=== PATIENT | female | born 2000 | race American Indian/Alaskan Native ===

== ENCOUNTER 2021-03-30 18:54 | Inpatient (IN) | payer SELFPAY ==
[2021-03-30] MEDS ORDERED: LACTATED RINGERS 1,000 ML ONE (20:49)
[2021-03-30 21:18] LABS: Hemoglobin 10.3 gm/dl (10.1-14.3); Mean Corpuscular HGB Conc 32 % (30-34); Mean Corpuscular Volume 73 fl (79-97); Platelet Count 214 K/mm3 (140-440); Red Cell Distribution Width 16.3 % (13.2-15.2)
[2021-03-30 21:20] LABS: Bilirubin,Urine NEG (Negative); Blood,Urine NEG (Negative); Color,Urine Yellow (Yellow); Protein,Urine <15 mg/dL mg/dL (Negative); Urobilinogen,Urine < 2.0 mg/dL (<2.0); WBC,Urine < 1.0 /HPF (0.0-6.0)
[2021-03-30 22:22] LABS: Alanine Aminotransferase 6 units/L (7-56); Albumin 3.8 g/dL (3.9-5); Blood Urea Nitrogen 3 mg/dL (7-17); Calcium 9.5 mg/dL (8.4-10.2); Hemolysis Index 5
[2021-03-30 22:26] LABS: BUN/Creatinine Ratio 8
--- NOTE | 2021-03-30 22:36 | Ultrasound Report ---
ULTRASOUND OBSTETRIC LIMITED ULTRASOUND BIOPHYSICAL PROFILE INDICATION / CLINICAL INFORMATION: WELL BEING. Clinical Gestational Age (GA) in weeks, days: 40 weeks 3 days TECHNIQUE: Transabdominal. COMPARISON: None available. FINDINGS: BREATHING MOVEMENT = 2 GROSS BODY MOVEMENT = 2 TONE = 2 QUALITATIVE AMNIOTIC FLUID VOLUME = 2 TOTAL BIOPHYSICAL SCORE = 8/8 HEART RATE (beats per minute): 137 AMNIOTIC FLUID INDEX (cm) = 16 (normal = 7-24 cm) PRESENTATION: Cephalic. ADDITIONAL FINDINGS: None. IMPRESSION: 1. Biophysical Score = 8/8 Signer Name: Miki Pritchett MD Signed: 03/30/2021 10:31 PM Workstation Name: [id number]
--- NOTE | 2021-03-30 22:40 | Ultrasound Report ---
ULTRASOUND OBSTETRIC INDICATION / CLINICAL INFORMATION: GEST AGE. Clinical Gestational Age (GA) in weeks, days: 20 weeks 3 days TECHNIQUE: Transabdominal. COMPARISON: None available. FINDINGS: Single intrauterine . Biparietal Diameter = 9.5 cm = 39, 0 weeks, days Head Circumference = 33.9 cm = 38, 4 weeks, days Abdominal Circumference = 36.4 cm = 39, 5 weeks, days Femur Length = 7.5 cm = 38.1 weeks, days Average Ultrasound Age (AUA) = 38, 6 weeks, days Heart Rate: 137 beats per minute. Estimated Weight in grams (if calculated): 3702 grams Estimated Weight Growth Percentile (if calculated): 51 Position: cephalic. Placenta: anterior and free of the os. Amniotic Fluid Volume: normal Amniotic Fluid Index (JOSE) in cm (if calculated): 16. Maternal Adnexa: No significant abnormality. IMPRESSION: 1. Single, living intrauterine with estimated sonographic age of 38, 6 weeks, days. 2. No significant sonographic abnormality. Signer Name: Miki Pritchett MD Signed: 03/30/2021 10:35 PM Workstation Name: [id number]
[2021-03-30] MEDS ORDERED: ACETAMINOPHEN W/CODEINE 300-30 MG TAB PO ONE (23:47)
[2021-03-31] MEDS ORDERED: LACTATED RINGERS 1,000 ML ONE (00:13)
[2021-03-31] MEDS ORDERED: LIDOCAINE (2%) 20 MG/1 ML VIAL 20 ML MDV INFILTRATI ONE (00:19)
[2021-03-31] MEDS ORDERED: ePHEDrine SULFATE 50 MG/1 ML INJ IV PRN ×2 (00:19→01:51)
[2021-03-31] MEDS ORDERED: NalbUPHINE 10 MG/1 ML INJ IV PRN ×2 (00:19→01:51)
[2021-03-31] MEDS ORDERED: AMPICILLIN/NS 2 GM/100 ML 2 GM/100 ML BAG IV ONE (00:19)
[2021-03-31] MEDS ORDERED: TERBUTALINE 1 MG/1 ML INJ SUB-Q PRN (00:19)
[2021-03-31] MEDS ORDERED: ACETAMINOPHEN 325 MG TAB PO PRN (00:19)
[2021-03-31] MEDS ORDERED: PROMETHAZINE 25 MG TAB PO PRN ×2 (00:19→13:00)
[2021-03-31] MEDS ORDERED: LOPERAMIDE 2 MG CAP PO PRN (00:19)
[2021-03-31] MEDS ORDERED: MINERAL OIL 30 ML ORAL LIQD PO PRN (00:19)
[2021-03-31] MEDS ORDERED: OXYTOCIN 10 UNIT/1 ML INJ IM PRN (00:19)
[2021-03-31] MEDS ORDERED: METHYLERGONOVINE MALEATE 0.2 MG/ML VIAL IM PRN (00:19)
[2021-03-31] MEDS ORDERED: miSOPROStol 200 MCG TAB PR PRN (00:19)
[2021-03-31] MEDS ORDERED: CARBOPROST TROMETHAMINE 250 MCG/1 ML INJ IM PRN (00:19)
[2021-03-31] MEDS ORDERED: ONDANSETRON 4 MG/2 ML INJ IV PRN ×3 (00:19→13:00)
[2021-03-31] MEDS ORDERED: fentaNYL 100 MCG/2 ML INJ IV PRN (00:19)
--- NOTE | 2021-03-31 00:28 | History and Physical Report ---
History of Present Illness Date of examination: 03/31/21 Date of admission: 03/31/21 Chief complaint: painful contractions History of present illness: at term by [place] Pt had ultrasound done tonight by [facility] and same was at 38.3wks. Pt c/o painful contractions that are worsening, denies leakage of fluid or vag bleeding. pt desires epidural for pain relief. Pt admits to movement. Past History Past Medical History: no pertinent history Past Surgical History: no surgical history Social history: no significant social history - Obstetrical History : 1 Number of Living Children: 0 Medications and Allergies Allergies Allergy/AdvReac Type Severity Reaction Status Date / Time No Known Allergies Allergy Unverified 03/30/21 19:39 Home Medications Medication Instructions Recorded Confirmed Last Taken Type No Known Home Medications [No 03/30/21 03/30/21 Unknown History Reported Home Medications] Review of Systems All systems: negative (painful ctx) - Vital Signs Vital signs: Vital Signs Pulse BP Pulse Ox 90 122/73 76 L 03/30/21 19:36 03/30/21 19:36 03/30/21 19:36 Temp Pulse Resp BP Pulse Ox 98.4 F 95 H 12 122/73 94 03/30/21 21:34 03/31/21 00:20 03/30/21 19:39 03/30/21 19:39 03/31/21 00:20 - Physical Exam Breasts: Positive: deferred Cardiovascular: Regular rate Lungs: Positive: Normal air movement Uterus: Positive: enlarged (firm abdomen with contractions without resting tone) Extremities: Positive: normal - Obstetrical FHR: category 1 Uterine Contraction Monitor Mode: Palpation Cervical Dilatation: 2 (per triage nurse) Cervical Effacement Percentage: 80 station: -3 Uterine Contraction Pattern: Regular Uterine Contraction Intensity: Strong/Firm Results Result Diagrams: 03/30/21 21:00 03/30/21 21:00 Abnormal lab results 03/30/21 03/30/21 Range/Units 21:00 21:00 WBC 12.3 H (4.5-11.0) K/mm3 MCV 73 L (79-97) fl MCH 24 L (28-32) pg RDW 16.3 H (13.2-15.2) % Sodium 136 L (137-145) mmol/L BUN 3 L (7-17) mg/dL Creatinine 0.4 L (0.6-1.2) mg/dL ALT 6 L (7-56) units/L Alkaline Phosphatase 159 H (35-129) units/L Albumin 3.8 L (3.9-5) g/dL All other labs normal. Assessment and Plan Term at 38.3wks by triage scan with records not available and per pt report her EDC was 03/27/21 1. Pt observed in triage by nurse and pelvic change made, hence admission 2. Pt to get epidural now with concern for firm contractions that is not returning to soft tone 3. cbc and type and screen seen; will add on walk in labs, including covid 19 screen in am per hospital protocol 4. Will give amp for GBS prophylaxis 5. Plan of care discussed with risks, benefits and alternatives All questions encouraged and answered
[2021-03-31] MEDS ORDERED: OXYTOCIN DRIP 30 UNITS/500 ML BAG IV SCH (01:00)
[2021-03-31] MEDS ORDERED: NALOXONE 2 MG/2 ML INJ IV PRN (01:51)
[2021-03-31] MEDS ORDERED: LACTATED RINGERS 250 ML IV SOLN IV ONE (01:51)
[2021-03-31] MEDS ORDERED: diphenhydrAMINE 50 MG/ML VIAL IV PRN (01:51)
[2021-03-31] MEDS ORDERED: fentaNYL-BUPIV 2 MCG/ML-0.125% 200 MCG/100 ML BAG EPIDURAL SCH (02:00)
--- NOTE | 2021-03-31 02:27 | Anesthesia Consultation ---
Anesthesia Consult and Med Hx Date of service: 03/31/21 - Airway Anesthetic Teeth Evaluation: Good ROM Head & Neck: Adequate Mental/Hyoid Distance: Adequate Mallampati Class: Class II Intubation Access Assessment: Probably Good - Pulmonary Exam CTA: Yes - Cardiac Exam Cardiac Exam: RRR - Pre-Operative Health Status ASA Pre-Surgery Classification: ASA2 Proposed Anesthetic Plan: Epidural - Pulmonary Hx Smoking: No Hx Asthma: No COPD: No Hx Pneumonia: No Hx Sleep Apnea: No - Cardiovascular System Hx Hypertension: No Hx Heart Attack/AMI: No Hx Angina: No - Central Nervous System Hx Seizures: No Hx Psychiatric Problems: No - Endocrine Hx Renal Disease: No Hx End Stage Renal Disease: No Hx Liver Disease: No Hx Insulin Dependent Diabetes: No Hx Non-Insulin Dependent Diabetes: No Hx Hypothyroidism: No Hx Hyperthyroidism: No - Hematic Hx Anemia: No Hx Sickle Cell Disease: No - Other Systems Hx Alcohol Use: No
--- NOTE | 2021-03-31 02:28 | Progress Note ---
Labor Epidural - Labor Epidural Start Time: 02:02 Stop Time: 02:20 Performed by:: ARABELLA DELGADILLO Procedure: Patient is requesting epidural for labor and pain. H&P, labs were reviewed. Patient IDed, H&P reviewed, all questions and concerns were answered, and consent was signed. Timeout was performed at bedside. Patient in sitting position. Sterile prep and drape was performed. 3ml of 1% lidocaine skin wheal at L[3]- L [4]. 18-gauge hustead epidural needle was advanced without success. 3ml of 1% lidocaine skin wheal at L[2]- L [3]. 18-gauge hustead epidural needle was advanced to loss of resistance with air technique 7cm. Negative CSF negative blood. Epidural catheter advanced to [12] centimeters. [negative] Aspiration [negative] test dose. Sterile dressing applied. Patient tolerated procedure.
--- NOTE | 2021-03-31 02:41 | Event Note ---
Date: 03/31/21 pt has received epidural, now comfortable. Jefferson cath placed to gravity. FHR category I and abd soft between ctx. Will AROM after pt receives IV ampicillin and augment with pitocin if no pelvic change.
--- NOTE | 2021-03-31 05:45 | Event Note ---
Date: 03/31/21 pt has received ampicillin and comfortable with epidural with contraction 2- 4min. AROM done at 5:10 and same with moderate amount of clear fluid. Pelvic 5/100/-1; nurse to repeat pelvic in 2hr and if same unchanged then augment with pitocin. All questions encouraged and answered.
[2021-03-31] MEDS: AMPICILLIN/NS 1 GM/50 ML 1 GM/50 ML BAG IV SCH ×3 (06:20→18:57)
--- NOTE | 2021-03-31 09:18 | Progress Note ---
Assessment and Plan A: IUP@ 38.3 wks GBS pos P: Continue routine orders Will allow pt to labor down Anticipate Subjective - Subjective Date of service: 03/31/21 Principal diagnosis: iup@38.3 wks Patient reports: movement normal, contractions Objective - Vital Signs Vital Signs: Vital Signs - 12hr 03/30/21 03/30/21 03/30/21 21:15 21:20 21:25 Temperature Pulse Rate 81 88 78 Blood Pressure O2 Sat by Pulse 100 100 100 Oximetry O2 Sat by Pulse Oximetry [ Bilateral] 03/30/21 03/30/21 03/30/21 21:30 21:34 21:35 Temperature 98.4 F Pulse Rate 86 89 Blood Pressure O2 Sat by Pulse 100 100 Oximetry O2 Sat by Pulse Oximetry [ Bilateral] 03/30/21 03/30/21 03/30/21 21:40 21:45 21:50 Temperature Pulse Rate 88 86 81 Blood Pressure O2 Sat by Pulse 100 100 100 Oximetry O2 Sat by Pulse Oximetry [ Bilateral] 03/30/21 03/30/21 03/30/21 21:55 22:00 22:05 Temperature Pulse Rate 79 79 78 Blood Pressure O2 Sat by Pulse 100 100 100 Oximetry O2 Sat by Pulse Oximetry [ Bilateral] 03/30/21 03/30/21 03/30/21 22:14 22:19 22:20 Temperature Pulse Rate 104 H 67 66 Blood Pressure O2 Sat by Pulse 93 99 93 Oximetry O2 Sat by Pulse Oximetry [ Bilateral] 03/30/21 03/30/21 03/30/21 22:24 22:26 23:24 Temperature Pulse Rate 90 82 81 Blood Pressure O2 Sat by Pulse 100 90 100 Oximetry O2 Sat by Pulse Oximetry [ Bilateral] 03/30/21 03/30/21 03/30/21 23:29 23:34 23:35 Temperature Pulse Rate 95 H 94 H 93 H Blood Pressure O2 Sat by Pulse 100 100 94 Oximetry O2 Sat by Pulse Oximetry [ Bilateral] 03/30/21 03/30/21 03/30/21 23:39 23:42 23:44 Temperature Pulse Rate 88 95 H 73 Blood Pressure O2 Sat by Pulse 100 89 100 Oximetry O2 Sat by Pulse Oximetry [ Bilateral] 03/30/21 03/30/21 03/30/21 23:49 23:54 23:59 Temperature Pulse Rate 92 H 80 82 Blood Pressure O2 Sat by Pulse 99 100 100 Oximetry O2 Sat by Pulse Oximetry [ Bilateral] 03/31/21 03/31/21 03/31/21 00:04 00:09 00:13 Temperature Pulse Rate 91 H 86 93 H Blood Pressure O2 Sat by Pulse 98 100 93 Oximetry O2 Sat by Pulse Oximetry [ Bilateral] 03/31/21 03/31/21 03/31/21 00:14 00:19 00:20 Temperature Pulse Rate 85 89 95 H Blood Pressure O2 Sat by Pulse 100 100 94 Oximetry O2 Sat by Pulse Oximetry [ Bilateral] 03/31/21 03/31/21 03/31/21 00:24 00:31 00:36 Temperature Pulse Rate 91 H 84 91 H Blood Pressure O2 Sat by Pulse 100 99 100 Oximetry O2 Sat by Pulse Oximetry [ Bilateral] 03/31/21 03/31/21 03/31/21 00:41 00:46 00:48 Temperature Pulse Rate 85 89 86 Blood Pressure O2 Sat by Pulse 100 100 93 Oximetry O2 Sat by Pulse Oximetry [ Bilateral] 03/31/21 03/31/21 03/31/21 00:51 00:59 01:04 Temperature Pulse Rate 88 48 L 82 Blood Pressure O2 Sat by Pulse 100 99 100 Oximetry O2 Sat by Pulse Oximetry [ Bilateral] 03/31/21 03/31/21 03/31/21 01:09 01:14 01:40 Temperature Pulse Rate 86 79 84 Blood Pressure O2 Sat by Pulse 100 100 100 Oximetry O2 Sat by Pulse Oximetry [ Bilateral] 03/31/21 03/31/21 03/31/21 01:45 01:54 01:59 Temperature Pulse Rate 92 H 90 80 Blood Pressure O2 Sat by Pulse 100 84 100 Oximetry O2 Sat by Pulse Oximetry [ Bilateral] 03/31/21 03/31/21 03/31/21 02:01 02:03 02:04 Temperature Pulse Rate 94 H 89 95 H Blood Pressure 121/75 O2 Sat by Pulse 84 100 Oximetry O2 Sat by Pulse Oximetry [ Bilateral] 03/31/21 03/31/21 03/31/21 02:09 02:14 02:18 Temperature Pulse Rate 90 61 101 H Blood Pressure 120/63 O2 Sat by Pulse 100 86 Oximetry O2 Sat by Pulse Oximetry [ Bilateral] 03/31/21 03/31/21 03/31/21 02:19 02:20 02:22 Temperature Pulse Rate 97 H 94 H 94 H Blood Pressure 119/63 119/74 O2 Sat by Pulse 100 Oximetry O2 Sat by Pulse Oximetry [ Bilateral] 03/31/21 03/31/21 03/31/21 02:23 02:24 02:26 Temperature Pulse Rate 88 81 76 Blood Pressure 127/74 122/71 O2 Sat by Pulse 94 100 Oximetry O2 Sat by Pulse Oximetry [ Bilateral] 03/31/21 03/31/21 03/31/21 02:28 02:29 02:30 Temperature Pulse Rate 75 79 81 Blood Pressure 122/70 125/73 O2 Sat by Pulse 100 Oximetry O2 Sat by Pulse Oximetry [ Bilateral] 03/31/21 03/31/21 03/31/21 02:32 02:34 02:39 Temperature Pulse Rate 74 78 77 Blood Pressure 117/66 O2 Sat by Pulse 100 100 Oximetry O2 Sat by Pulse Oximetry [ Bilateral] 03/31/21 03/31/21 03/31/21 02:44 02:49 02:54 Temperature Pulse Rate 84 73 78 Blood Pressure 106/57 O2 Sat by Pulse 99 100 100 Oximetry O2 Sat by Pulse Oximetry [ Bilateral] 03/31/21 03/31/21 03/31/21 02:59 03:03 03:04 Temperature Pulse Rate 76 76 79 Blood Pressure 107/61 O2 Sat by Pulse 100 99 Oximetry O2 Sat by Pulse Oximetry [ Bilateral] 03/31/21 03/31/21 03/31/21 03:09 03:14 03:19 Temperature Pulse Rate 76 77 79 Blood Pressure 106/59 O2 Sat by Pulse 99 98 97 Oximetry O2 Sat by Pulse Oximetry [ Bilateral] 03/31/21 03/31/21 03/31/21 03:24 03:29 03:33 Temperature Pulse Rate 79 82 75 Blood Pressure 108/60 O2 Sat by Pulse 99 98 Oximetry O2 Sat by Pulse Oximetry [ Bilateral] 03/31/21 03/31/21 03/31/21 03:34 03:39 03:44 Temperature Pulse Rate 82 85 77 Blood Pressure O2 Sat by Pulse 98 97 98 Oximetry O2 Sat by Pulse Oximetry [ Bilateral] 03/31/21 03/31/21 03/31/21 03:47 03:49 03:54 Temperature Pulse Rate 84 81 81 Blood Pressure 109/63 O2 Sat by Pulse 97 98 Oximetry O2 Sat by Pulse Oximetry [ Bilateral] 03/31/21 03/31/21 03/31/21 03:59 04:02 04:04 Temperature Pulse Rate 79 78 78 Blood Pressure 104/59 O2 Sat by Pulse 98 97 Oximetry O2 Sat by Pulse Oximetry [ Bilateral] 03/31/21 03/31/21 03/31/21 04:09 04:14 04:18 Temperature Pulse Rate 81 77 79 Blood Pressure 119/69 O2 Sat by Pulse 97 99 Oximetry O2 Sat by Pulse Oximetry [ Bilateral] 03/31/21 03/31/21 03/31/21 04:19 04:24 04:29 Temperature Pulse Rate 79 74 79 Blood Pressure O2 Sat by Pulse 100 98 99 Oximetry O2 Sat by Pulse Oximetry [ Bilateral] 03/31/21 03/31/21 03/31/21 04:33 04:34 04:39 Temperature Pulse Rate 80 76 82 Blood Pressure 115/71 O2 Sat by Pulse 98 98 Oximetry O2 Sat by Pulse Oximetry [ Bilateral] 03/31/21 03/31/21 03/31/21 04:44 04:49 04:54 Temperature Pulse Rate 81 78 77 Blood Pressure 114/67 O2 Sat by Pulse 98 99 98 Oximetry O2 Sat by Pulse Oximetry [ Bilateral] 03/31/21 03/31/21 03/31/21 04:59 05:04 05:09 Temperature Pulse Rate 83 79 89 Blood Pressure 114/69 O2 Sat by Pulse 100 100 100 Oximetry O2 Sat by Pulse Oximetry [ Bilateral] 03/31/21 03/31/21 03/31/21 05:14 05:18 05:19 Temperature Pulse Rate 80 79 78 Blood Pressure 115/74 O2 Sat by Pulse 100 100 Oximetry O2 Sat by Pulse Oximetry [ Bilateral] 03/31/21 03/31/21 03/31/21 05:24 05:29 05:33 Temperature Pulse Rate 76 77 75 Blood Pressure 112/68 O2 Sat by Pulse 100 100 Oximetry O2 Sat by Pulse Oximetry [ Bilateral] 03/31/21 03/31/21 03/31/21 05:34 05:39 05:44 Temperature Pulse Rate 74 77 77 Blood Pressure O2 Sat by Pulse 100 100 100 Oximetry O2 Sat by Pulse Oximetry [ Bilateral] 03/31/21 03/31/21 03/31/21 05:49 05:54 05:59 Temperature Pulse Rate 78 76 75 Blood Pressure 117/72 O2 Sat by Pulse 100 100 100 Oximetry O2 Sat by Pulse Oximetry [ Bilateral] 03/31/21 03/31/21 03/31/21 06:03 06:04 06:09 Temperature Pulse Rate 75 77 80 Blood Pressure 113/66 O2 Sat by Pulse 100 100 Oximetry O2 Sat by Pulse Oximetry [ Bilateral] 03/31/21 03/31/21 03/31/21 06:14 06:17 06:19 Temperature Pulse Rate 86 83 78 Blood Pressure 115/68 O2 Sat by Pulse 100 100 Oximetry O2 Sat by Pulse Oximetry [ Bilateral] 03/31/21 03/31/21 03/31/21 06:24 06:29 06:34 Temperature Pulse Rate 79 79 80 Blood Pressure 116/67 O2 Sat by Pulse 100 100 100 Oximetry O2 Sat by Pulse Oximetry [ Bilateral] 03/31/21 03/31/21 03/31/21 06:39 06:44 06:48 Temperature Pulse Rate 89 80 79 Blood Pressure 115/68 O2 Sat by Pulse 100 100 Oximetry O2 Sat by Pulse Oximetry [ Bilateral] 03/31/21 03/31/21 03/31/21 06:49 06:54 06:59 Temperature Pulse Rate 82 80 78 Blood Pressure O2 Sat by Pulse 100 100 100 Oximetry O2 Sat by Pulse Oximetry [ Bilateral] 03/31/21 03/31/21 03/31/21 07:03 07:04 07:09 Temperature Pulse Rate 100 H 83 81 Blood Pressure 121/74 O2 Sat by Pulse 100 100 Oximetry O2 Sat by Pulse Oximetry [ Bilateral] 03/31/21 03/31/21 03/31/21 07:14 07:19 07:24 Temperature Pulse Rate 81 80 84 Blood Pressure 115/69 O2 Sat by Pulse 100 100 100 Oximetry O2 Sat by Pulse Oximetry [ Bilateral] 03/31/21 03/31/21 03/31/21 07:29 07:33 07:34 Temperature Pulse Rate 80 80 85 Blood Pressure 114/66 O2 Sat by Pulse 100 100 Oximetry O2 Sat by Pulse Oximetry [ Bilateral] 03/31/21 03/31/21 03/31/21 07:39 07:43 07:44 Temperature 98.8 F Pulse Rate 92 H 82 Blood Pressure O2 Sat by Pulse 100 100 Oximetry O2 Sat by Pulse 100 Oximetry [ Bilateral] 03/31/21 03/31/21 03/31/21 07:46 07:48 07:49 Temperature Pulse Rate 82 81 85 Blood Pressure 116/65 115/68 O2 Sat by Pulse 99 Oximetry O2 Sat by Pulse Oximetry [ Bilateral] 03/31/21 03/31/21 03/31/21 07:54 07:59 08:03 Temperature Pulse Rate 85 84 81 Blood Pressure 122/74 O2 Sat by Pulse 100 100 Oximetry O2 Sat by Pulse Oximetry [ Bilateral] 03/31/21 03/31/21 03/31/21 08:04 08:09 08:14 Temperature Pulse Rate 84 79 84 Blood Pressure O2 Sat by Pulse 100 100 100 Oximetry O2 Sat by Pulse Oximetry [ Bilateral] 03/31/21 03/31/21 03/31/21 08:19 08:24 08:29 Temperature Pulse Rate 85 127 H 88 Blood Pressure 118/69 O2 Sat by Pulse 100 100 100 Oximetry O2 Sat by Pulse Oximetry [ Bilateral] 03/31/21 03/31/21 03/31/21 08:32 08:34 08:39 Temperature Pulse Rate 85 89 92 H Blood Pressure 119/70 O2 Sat by Pulse 100 100 Oximetry O2 Sat by Pulse Oximetry [ Bilateral] 03/31/21 03/31/21 03/31/21 08:44 08:48 08:49 Temperature Pulse Rate 90 86 87 Blood Pressure 120/77 O2 Sat by Pulse 100 100 Oximetry O2 Sat by Pulse Oximetry [ Bilateral] 03/31/21 03/31/21 03/31/21 08:54 08:59 09:04 Temperature Pulse Rate 90 106 H 101 H Blood Pressure 134/79 O2 Sat by Pulse 100 100 100 Oximetry O2 Sat by Pulse Oximetry [ Bilateral] 03/31/21 09:09 Temperature Pulse Rate 82 Blood Pressure O2 Sat by Pulse 100 Oximetry O2 Sat by Pulse Oximetry [ Bilateral] - Exam Breasts: normal Abdomen: Present: normal appearance, soft, normal bowel sounds Vulva: both: normal FHR: auscultation normal, category 1 Uterine Contraction Monitor Mode: External Cervical Dilatation: 9 Cervical Effacement Percentage: 100 station: 0 Uterine Contraction Pattern: Regular Uterine Tone Measurement Phase: Resting Uterine Contraction Intensity: Strong/Firm Extremities: normal - Labs Labs: Abnormal Labs 03/30/21 03/30/21 21:00 21:00 WBC 12.3 H MCV 73 L MCH 24 L RDW 16.3 H Sodium 136 L BUN 3 L Creatinine 0.4 L ALT 6 L Alkaline Phosphatase 159 H Albumin 3.8 L Laboratory Results - last 24 hr 03/30/21 03/30/21 03/30/21 20:00 21:00 21:00 WBC 12.3 H RBC 4.40 Hgb 10.3 Hct 32.0 MCV 73 L MCH 24 L MCHC 32 RDW 16.3 H Plt Count 214 Sodium Potassium Chloride Carbon Dioxide Anion Gap BUN Creatinine Estimated GFR BUN/Creatinine Ratio Glucose Calcium Total Bilirubin AST ALT Alkaline Phosphatase Total Protein Albumin Albumin/Globulin Ratio Urine Color Yellow Urine Turbidity Clear Urine pH 7.0 Ur Specific [place] 1.008 Urine Protein <15 mg/dl Urine Glucose (UA) Neg Urine Ketones Neg Urine Blood Neg Urine Nitrite Neg Urine Bilirubin Neg Urine Urobilinogen < 2.0 Ur Leukocyte Esterase Tr Urine WBC (Auto) < 1.0 Urine RBC (Auto) 2.0 U Epithel Cells (Auto) 1.0 Membranes Rupture Negative Syphilis IgG Antibody HIV 1&2 Antibody Rapid HIV P24 Antigen Rubella IgG Antibody Blood Type Antibody Screen 03/30/21 03/30/21 03/31/21 21:00 21:00 00:04 WBC RBC Hgb Hct MCV MCH MCHC RDW Plt Count Sodium 136 L Potassium 4.1 Chloride 102.3 Carbon Dioxide 22 Anion Gap 16 BUN 3 L Creatinine 0.4 L Estimated GFR > 60 BUN/Creatinine Ratio 8 Glucose 92 Calcium 9.5 Total Bilirubin 0.20 AST 14 ALT 6 L Alkaline Phosphatase 159 H Total Protein 7.3 Albumin 3.8 L Albumin/Globulin Ratio 1.1 Urine Color Urine Turbidity Urine pH Ur Specific [place] Urine Protein Urine Glucose (UA) Urine Ketones Urine Blood Urine Nitrite Urine Bilirubin Urine Urobilinogen Ur Leukocyte Esterase Urine WBC (Auto) Urine RBC (Auto) U Epithel Cells (Auto) Membranes Rupture Syphilis IgG Antibody Nonreactive HIV 1&2 Antibody Rapid HIV P24 Antigen Rubella IgG Antibody Blood Type A POSITIVE Antibody Screen Negative 03/31/21 03/31/21 00:04 00:04 WBC RBC Hgb Hct MCV MCH MCHC RDW Plt Count Sodium Potassium Chloride Carbon Dioxide Anion Gap BUN Creatinine Estimated GFR BUN/Creatinine Ratio Glucose Calcium Total Bilirubin AST ALT Alkaline Phosphatase Total Protein Albumin Albumin/Globulin Ratio Urine Color Urine Turbidity Urine pH Ur Specific [place] Urine Protein Urine Glucose (UA) Urine Ketones Urine Blood Urine Nitrite Urine Bilirubin Urine Urobilinogen Ur Leukocyte Esterase Urine WBC (Auto) Urine RBC (Auto) U Epithel Cells (Auto) Membranes Rupture Syphilis IgG Antibody Nonreactive HIV 1&2 Antibody Rapid Non react HIV P24 Antigen Non react Rubella IgG Antibody Immune Blood Type Antibody Screen
[2021-03-31] MEDS: LACTATED RINGERS 1,000 ML IV SCH ×2 (11:18→12:26)
--- NOTE | 2021-03-31 11:51 | Event Note ---
Date: 03/31/21 3rd degree perineal and b/l labial lacerations repaired with 0-vicryl and 2-0 vicryl in the usual fashion. rectum confirmed patent at the completion of the procedure. excellent hemostasis EBL~ 450 ml Cass Ahuja MD
--- NOTE | 2021-03-31 11:58 | Procedure Note ---
OB Delivery Note - Delivery Date of Delivery: 03/31/21 Surgeon: LUCIO HERRERA Estimated blood loss: <100cc - Vaginal Delivery presentation: vertex Delivery position: OA Delivery induction: none Delivery monitor: external FHT, external uterine Route of delivery: Delivery placenta: spontaneous Delivery cord: 3 umbilical vessels Episiotomy: none Delivery laceration: 3rd degree Delivery repair: other Anesthesia: epidural Delivery comments: of a viable live male infant in OA position over a 3rd degree perineal lac. Spontaneous delivery of head and shoulders. was immediately placed on mom's chest for skin to skin bonding. Delayed cord clamping while NICU dried and stimulated the baby. Cord was clamped x 2 and FOB was guided in cutting the cord. Infant was taken to warmer by NICU nurse for an initaial asses 8/9. Spontaneous delivery of an intact placenta with CVX3. FF@ U2 with fundal massage and IV Pitocin. Dr Ahuja in to repair 3rd degree laceration. EBL >100 cc. FW 3790 Gms. Mom and baby was left in stable condition with nurses. - Infant A at 1 minute: 8 at 5 minutes: 9 (FW 3790 Gms) Infant Gender: Male
[2021-03-31] MEDS ORDERED: WITCH HAZEL/ GLYCERIN PAD TP PRN (12:00)
[2021-03-31] MEDS ORDERED: LANOLIN/ZINC/DIMETHICONE (LANSINOH) 7 GM TP PRN (13:00)
[2021-03-31] MEDS ORDERED: oxyCODONE /ACETAMINOPHEN 5-325MG TAB PO PRN (13:00)
[2021-03-31] MEDS ORDERED: PROMETHAZINE 25 MG RECT SUPP PR PRN (13:00)
[2021-03-31] MEDS ORDERED: MAGNESIUM HYDROXIDE (MOM) ORAL LIQD UDC PO PRN (13:00)
[2021-03-31] MEDS ORDERED: diphenhydrAMINE 25 MG CAP PO PRN (13:00)
[2021-03-31] MEDS ORDERED: BENZOCAINE/MENTHOL 20/0.5% TOP SPRAY 56 GM TP PRN (14:00)
[2021-03-31] MEDS: IBUPROFEN 600 MG TAB PO SCH (18:58)
[2021-04-01 00:44] LABS: Hematocrit 26.8 % (30.3-42.9); Hemoglobin 8.5 gm/dl (10.1-14.3)
[2021-04-01] MEDS: IBUPROFEN 600 MG TAB PO SCH ×5 (05:48→23:21)
[2021-04-01] MEDS: DOCUSATE SODIUM 100 MG CAP PO SCH ×2 (11:46→23:22)
[2021-04-01] MEDS: FERROUS SULFATE 325 MG TAB PO SCH (11:46)
--- NOTE | 2021-04-01 12:05 | Progress Note ---
Assessment and Plan A: day 1 S/P with 3rd degree laceration. Anemia. P: Supplement with iron. Colace stool softener. Anticipate discharge home tomorrow if patient continues to do well. Subjective - Subjective Date of service: 04/01/21 Principal diagnosis: day 1 S/P Patient reports: appetite normal, voiding normally, pain well controlled, flatus, ambulating normally, no dizzy ambulation, no nauseated [place]: doing well Objective - Vital Signs Latest vital signs: Vital Signs Temp Pulse Resp BP BP Pulse Ox Pulse Ox 04/01/21 08:37 98.2 F 85 20 119/72 100 04/01/21 08:00 98 04/01/21 00:00 98.3 F 101 H 20 111/64 97 03/31/21 20:37 99.0 F 94 H 20 106/58 97 03/31/21 19:40 97 03/31/21 17:07 98.1 F 95 H 19 117/76 100 03/31/21 13:30 98.7 F 86 17 123/72 100 100 03/31/21 13:05 85 100 03/31/21 13:02 84 129/77 03/31/21 13:00 85 100 03/31/21 12:55 82 100 03/31/21 12:52 81 92 03/31/21 12:50 84 98 03/31/21 12:47 89 128/75 91 03/31/21 12:44 85 100 03/31/21 12:39 85 100 03/31/21 12:34 94 H 100 03/31/21 12:32 106 H 126/77 03/31/21 12:29 82 100 03/31/21 12:24 94 H 100 03/31/21 12:19 86 100 03/31/21 12:17 82 134/72 03/31/21 12:14 93 H 100 03/31/21 12:09 89 100 03/31/21 12:08 90 125/65 03/31/21 12:04 88 100 Intake and Output 03/31/21 04/01/21 04/01/21 23:59 07:59 15:59 Intake Total 200 360 Balance 200 360 Intake: Oral 200 Intake, Free Water 360 Other: Total, Intake Amount 200 # Voids Void 1 1 - Exam Cardiovascular: Present: Regular rate Lungs: Present: Clear to auscultation Abdomen: Present: normal appearance, soft. Absent: distention, tenderness, guarding, rigidity Uterus: Present: normal, firm, fundal height below umbilicus. Absent: bogginess, tenderness Extremities: Present: normal. Absent: tenderness, edema - Labs Labs: Abnormal lab results 04/01/21 Range/Units 00:17 Hgb 8.5 L (10.1-14.3) gm/dl Hct 26.8 L (30.3-42.9) %
[2021-04-02] MEDS: IBUPROFEN 600 MG TAB PO SCH (05:29)
--- NOTE | 2021-04-02 07:00 | Progress Note ---
Assessment and Plan A: day 2 S/P with 3rd degree laceration. Anemia. P: Discharge patient home today. Discussed with patient discharge instructions and warning signs. Advised patient to continue to take her vitamins and iron supplements at home. Advised patient to continue taking Colace stool softener at home. Advised patient to avoid intercourse, lifting, and heavy housework. Advised patient to follow up at [facility] within 2 weeks. Patient voiced understanding of all instructions. Subjective - Subjective Date of service: 04/02/21 Principal diagnosis: day 2 S/P Interval history: Patient desires discharge home today. Patient reports: appetite normal, voiding normally, pain well controlled, flatus, ambulating normally, no dizzy ambulation, no nauseated : doing well Objective - Vital Signs Latest vital signs: Vital Signs Temp Pulse Resp BP Pulse Ox Pulse Ox 04/02/21 05:29 18 04/02/21 01:33 98.3 F 92 H 20 112/59 100 04/01/21 23:21 20 04/01/21 19:35 98 04/01/21 16:23 98.2 F 87 20 120/76 98 04/01/21 08:37 98.2 F 85 20 119/72 100 04/01/21 08:00 98 Intake and Output 04/01/21 04/01/21 04/02/21 15:59 23:59 07:59 Intake Total 240 Balance 240 Intake: Oral 240 Other: Total, Intake Amount 240 # Voids Void 1 1 - Exam Cardiovascular: Present: Regular rate Lungs: Present: Clear to auscultation Abdomen: Present: normal appearance, soft. Absent: distention, tenderness, guarding, rigidity Uterus: Present: normal, firm, fundal height below umbilicus. Absent: bogginess, tenderness Extremities: Absent: tenderness, edema
--- NOTE | 2021-04-02 07:06 | Discharge Summary ---
Providers - Providers Date of Admission: 03/31/21 00:19 Date of discharge: 04/02/21 Attending physician: MANN FERGUSON Primary care physician: MANN FERGUSON Hospitalization Reason for admission: active labor Delivery: Laceration: 3rd degree complications: none Discharge diagnosis: IUP at term delivered baby: male Pertinent studies: Labs Hospital course: Stable hospital course Condition at discharge: Good Disposition: 01 HOME / SELF CARE / HOMELESS - Discharge Diagnoses (1) Term delivered Status: Acute (2) Anemia Status: Acute Plan - Provider Discharge Summary Activity: routine, no sex for 6 weeks, no heavy lifting 4 weeks, no strenuous exercise Diet: routine Instructions: routine Additional instructions: Continue taking your vitamin, iron supplements, and stool softeners at home. Follow up at [facility] in 2 weeks. Call your doctor immediately for: * Fever > 100.5 * Heavy vaginal bleeding ( >1 pad per hour) * Severe persistent headache * Shortness of breath * Reddened, hot, painful area to leg or breast - Follow up plan Follow up: MANN FERGUSON MD [Primary Care Provider] - 14 Days
[2021-04-02] MEDS: FERROUS SULFATE 325 MG TAB PO SCH (10:22)
[2021-04-02] MEDS: DOCUSATE SODIUM 100 MG CAP PO SCH (10:22)
[2021-04-02 15:46] VITALS: BP 113/69
== END 2021-04-02 12:50 | disposition home or self-care (01) | DRG 768 ==
LOC: TRG 18:54 → APU 18:56 → TRG 03-31 00:19 → APU 03-31 00:19 → OBSVTOIN 03-31 00:19 → LD 03-31 01:45 → OB 03-31 14:08
PROVIDERS: ADMIT Obstetrics & Gynecology; ATTEND Obstetrics & Gynecology
PROC: 10E0XZZ Delivery of Products of Conception, External Approach (ICD-10-PCS; principal; 2021-03-31)
PROC: 0DQR0ZZ Repair Anal Sphincter, Open Approach (ICD-10-PCS; 2021-03-31)
PROC: 10907ZC Drainage of Amniotic Fluid, Therapeutic from Products of Conception, Via Natural or Artificial Opening (ICD-10-PCS; 2021-03-31)
PROC: 3E0R3BZ Introduction of Anesthetic Agent into Spinal Canal, Percutaneous Approach (ICD-10-PCS; 2021-03-31)
PROC: 00HU33Z Insertion of Infusion Device into Spinal Canal, Percutaneous Approach (ICD-10-PCS; 2021-03-31)
DX: O99.824 Streptococcus B carrier state complicating childbirth (principal); Z37.0 Single live birth; D64.9 Anemia, unspecified; O70.20 Third degree perineal laceration during delivery, unspecified; Z3A.38 38 weeks gestation of pregnancy; Z20.822 Contact with and (suspected) exposure to COVID-19; O90.81 Anemia of the puerperium
CPT/HCPCS: 36415; 59025; 76816; 76819; 80053; 81001; 84112; 85014; 85018; 85027; 86592; 86706; 86762; 86850; 86900; 86901; 87806; 96360; G0378; J0290; J2590; J3490; J7120; U0003